=== PATIENT | female | born 1965 | race African-American/Black ===

== ENCOUNTER 2024-09-22 06:57 | Day surgery (SDC) | payer OTHER ==
[~2024-09-22] VITALS: Ht 172.7 cm; Wt 95.9 kg
[~2024-09-22 06:57] MED LIST: SODIUM CHLORIDE 0.9% 1,000 ML ONE
[2024-09-22] MEDS ORDERED: METF-1211 PO (07:17)
[2024-09-22] MEDS ORDERED: OMEP20CA12 PO (07:17)
[2024-09-22] MEDS ORDERED: ATOR10TA69 PO (07:17)
[2024-09-22] MEDS ORDERED: PROP10TA72 PO (07:23)
[2024-09-22] MEDS: SODIUM CHLORIDE 0.9% 1,000 ML IV ONE (08:04)
[2024-09-22] MEDS ORDERED: FentaNYL CITRATE PF 100 MCG/2 ML VIAL ONE (08:13)
[2024-09-22] MEDS ORDERED: MIDAZOLAM HCL 2 MG/2 ML VIAL ONE (08:13)
[2024-09-22 09:20] VITALS: PULSE 59; RESP 18; O2SAT 95
[2024-09-22 09:26] LABS: GLUCOMETER DEV NAME(LOC) SDS.; GLUCOSE,POINT OF CARE 104 MG/DL (70-110)
[2024-09-22] MEDS ORDERED: MethylPREDNISolone SOD SUCC 125 MG/2 ML VIAL ONE (09:56)
[2024-09-22] MEDS: MethylPREDNISolone SOD SUCC 125 MG/2 ML VIAL IVP ONE (09:59)
[2024-09-22] MEDS ORDERED: BENZOCAINE 20% 50 MCG/SPRAY 57 GM ONE (12:00)
[2024-09-22] MEDS ORDERED: LIDOCAINE 2% 11 ML JELLY ONE (12:00)
[2024-09-22] MEDS ORDERED: ALBUTEROL SULFATE 2.5 MG/0.5 ML NEB SOLUTION NEB ONE (12:00)
[2024-09-22] MEDS ORDERED: LIDOCAINE 4% 50 ML SOLUTION ONE (12:00)
== END 2024-09-22 12:00 | disposition home or self-care (01) ==
LOC: SURGERY 06:57
PROVIDERS: ATTEND Internal Medicine Critical Care Medicine
DX: R05.3 Chronic cough (principal); R06.2 Wheezing; R04.2 Hemoptysis; R91.8 Other nonspecific abnormal finding of lung field; J38.4 Edema of larynx; B37.0 Candidal stomatitis; R93.41 Abnormal radiologic findings on diagnostic imaging of renal pelvis, ureter, or bladder; I11.9 Hypertensive heart disease without heart failure; G47.30 Sleep apnea, unspecified; E78.00 Pure hypercholesterolemia, unspecified; Z87.891 Personal history of nicotine dependence; Z98.890 Other specified postprocedural states; Z79.899 Other long term (current) drug therapy
CPT/HCPCS: 99156; 82962; 87206; 87101; 87220; 87070; 93005; 31623; 31624; 71045; 87015; J3010; J2250; J2919; J7030; J7613; Z7610

== ENCOUNTER 2025-07-13 06:50 | Day surgery (SDC) | payer OTHER ==
[~2025-07-13] VITALS: Ht 172.7 cm; Wt 99.8 kg
[~2025-07-13 06:50] MED LIST changes: +ATOR10TA69 PO; +METF-1211 PO; +OMEP20CA12 PO; +PROP10TA72 PO
[2025-07-13] MEDS ORDERED: LIDOCAINE 4% 50 ML SOLUTION TP ONE (06:51)
[2025-07-13] MEDS ORDERED: LIDOCAINE 2% 11 ML JELLY TP ONE (06:51)
[2025-07-13] MEDS ORDERED: BENZOCAINE 20% 50 MCG/SPRAY 57 GM TP ONE (06:51)
[2025-07-13] MEDS: SODIUM CHLORIDE 0.9% 1,000 ML IV ONE (07:56)
[2025-07-13] MEDS ORDERED: FentaNYL CITRATE PF 100 MCG/2 ML VIAL ONE (08:20)
[2025-07-13] MEDS ORDERED: MIDAZOLAM HCL 2 MG/2 ML VIAL ONE (08:20)
[2025-07-13 09:35] LABS: GLUCOMETER DEV NAME(LOC) SDS.; GLUCOSE,POINT OF CARE 94 MG/DL (70-110)
[2025-07-13 10:07] VITALS: PULSE 60; RESP 20; O2SAT 94
== END 2025-07-13 13:55 | disposition home or self-care (01) ==
LOC: SURGERY 06:50
PROVIDERS: ATTEND Internal Medicine Critical Care Medicine
DX: J38.4 Edema of larynx (principal); B37.0 Candidal stomatitis; R05.3 Chronic cough; R06.2 Wheezing; R04.2 Hemoptysis; E78.00 Pure hypercholesterolemia, unspecified; M19.90 Unspecified osteoarthritis, unspecified site; R73.09 Other abnormal glucose
CPT/HCPCS: 31623; 82962; 87206; 87101; 87220; 87070; 88108; 31624; 71045; 87015; J3010; J2250; J2919; J7030; Z7610